=== PATIENT | female | born 1950 | race Two or more races ===

== ENCOUNTER 2021-01-11 14:51 | Inpatient (IN) | payer MEDICARE, MEDICAID ==
[~2021-01-11] VITALS: Ht 180.3 cm; Wt 84.9 kg
[2021-01-11 16:21] LABS: Basophils # (auto) 0 10 ^3/uL (0-0.2); Basophils % (auto) 0.5 % (0.0-2.0); Eosinophils # (auto) 0.1 10 ^3/uL (0-0.8); Eosinophils % (auto) 1.4 % (0.0-7.0); Hematocrit 39.5 % (36.0-46.0); Hemoglobin 12.6 g/dL (12.2-16.2); Lymphocytes # (auto) 1.1 10 ^3/uL (0.4-5.4); Lymphocytes % (auto) 12.7 % (10.0-50.0); Mean Corpuscular Hgb Conc. 31.9 g/dL (32.0-36.0); Mean Corpuscular Volume 81.6 fL (80.0-100.0); Monocytes # (auto) 0.9 10 ^3/uL (0-1.3); Monocytes % (auto) 10.7 % (0.0-12.0); Neutrophils # (auto) 6.5 10 ^3/uL (1.6-8.6); Neutrophils % (auto) 74.7 % (37.0-80.0); Red Blood Cells 4.85 10^6/uL (4.0-5.20); Red Cell Distribution Width 16.4 % (11.8-14.3); White Blood Cell 8.7 10^3/uL (4.4-10.8)
[2021-01-11 16:39] LABS: Albumin 2.9 g/dL (3.4-5.0); Calcium 8.9 mg/dL (8.5-10.1)
[2021-01-11 16:43] LABS: BUN/Creatinine Ratio 10.4; Bilirubin, Total 0.6 mg/dL (0.2-1.0); Total Protein 7.7 g/dL (6.4-8.2)
[2021-01-11 16:44] LABS: Urine Bacteria FEW /hpf (None Seen); Urine Blood 2+ /uL (Negative); Urine Hyaline Cast MANY /lpf (0 - 2); Urine Mucus FEW (None Seen); Urine Specific Gravity 1.019 (1.001-1.035); Urine WBC 1215 /hpf (0 - 5); Urine WBC Clumps PRESENT /hpf (None Seen)
[2021-01-11] MEDS ORDERED: HYDROcodone-ACET 5/325MG TAB PO ONE ×2 (17:00→21:15)
[2021-01-11] MEDS ORDERED: CLINDAMYCIN 600MG IV 50 ML IV ONE (18:45)
[2021-01-11] MEDS ORDERED: ACETAMINOPHEN 325 MG TAB PO PRN (21:15)
[2021-01-11] MEDS ORDERED: cefTRIAXone 1GM/50ML D5W 50 ML IV ONE (21:15)
[2021-01-11] MEDS ORDERED: TEMAZEPAM 15 MG CAP PO PRN (21:15)
[2021-01-12] MEDS: HYDROcodone-ACET 5/325MG TAB PO PRN ×2 (03:25→09:26)
[2021-01-12] MEDS: CLINDAMYCIN 600MG IV 50 ML IV SCH ×3 (06:30→22:26)
[2021-01-12 08:05] LABS: Calcium 7.6 mg/dL (8.5-10.1); Potassium 3.8 mmol/L (3.5-5.1)
[2021-01-12 08:08] LABS: BUN/Creatinine Ratio 16.4
[2021-01-12 08:22] LABS: Basophils # (auto) 0.1 10 ^3/uL (0-0.2); Basophils % (auto) 0.9 % (0.0-2.0); Eosinophils # (auto) 0.2 10 ^3/uL (0-0.8); Eosinophils % (auto) 2.5 % (0.0-7.0); Hematocrit 34.4 % (36.0-46.0); Hemoglobin 10.9 g/dL (12.2-16.2); Lymphocytes # (auto) 1.4 10 ^3/uL (0.4-5.4); Lymphocytes % (auto) 20.9 % (10.0-50.0); Mean Corpuscular Hemoglobin 26.1 pg (28.0-32.0); Mean Corpuscular Hgb Conc. 31.8 g/dL (32.0-36.0); Mean Corpuscular Volume 82.1 fL (80.0-100.0); Monocytes % (auto) 15.3 % (0.0-12.0); Neutrophils % (auto) 60.4 % (37.0-80.0); Nucleated Red Blood Cells % 0.2 %; Red Blood Cells 4.19 10^6/uL (4.0-5.20); Red Cell Distribution Width 16.2 % (11.8-14.3); White Blood Cell 6.6 10^3/uL (4.4-10.8)
[2021-01-12 09:00] VITALS: BP 108/56
[2021-01-12] MEDS: cefTRIAXone 1GM/50ML D5W 50 ML IV SCH (09:25)
[2021-01-12] MEDS ORDERED: PANTOPRAZOLE 40 MG TAB PO SCH (10:00)
[2021-01-12 13:00] VITALS: BP 105/71
[2021-01-12] MEDS ORDERED: OMNIPAQUE ORAL SOLN 500ml 12mg/ml PO ONE (14:43)
[2021-01-12] MEDS: MORPHINE SULFATE INJECTION 2 MG/ML SYRG IV PRN ×2 (15:38→23:11)
[2021-01-12 17:00] VITALS: BP 145/70
[2021-01-12 17:46] LABS: INR 0.99 (0.9-1.15); Partial Thromboplastin Time 33.9 sec (23.6-33.0)
[2021-01-12] MEDS ORDERED: KETOROLAC TROMETH 30 MG/ML 1ML VIAL IV PRN (21:15)
[2021-01-12 22:00] VITALS: BP 118/69
[2021-01-12] MEDS: NYSTATIN TOPICAL POWDER 15GM TOP SCH (22:26)
[2021-01-13 05:00] VITALS: BP 111/66
[2021-01-13] MEDS: CLINDAMYCIN 600MG IV 50 ML IV SCH (06:37)
[2021-01-13 09:00] VITALS: BP 114/65
[2021-01-13] MEDS: NYSTATIN TOPICAL POWDER 15GM TOP SCH ×2 (10:09→20:50)
[2021-01-13] MEDS: ENOXAPARIN SOD 40 MG/0.4 ML SYRINGE SC SCH (10:09)
[2021-01-13] MEDS ORDERED: HYDROcodone-ACET 5/325MG TAB PO PRN (10:15)
[2021-01-13] MEDS: HYDROmorphone HCL 2 MG TAB PO PRN ×2 (12:05→18:07)
[2021-01-13 13:00] VITALS: BP 124/64
[2021-01-13] MEDS ORDERED: metroNIDAZOLE 500MG/100ML 100 ML IV SCH (14:00)
[2021-01-13] MEDS ORDERED: LIDOCAINE 1% (LOCAL ANESTH.) PF 5ml SDV ID ONE (14:30)
[2021-01-13] MEDS: cefTRIAXone 1GM/50ML D5W 50 ML IV SCH (16:05)
[2021-01-13] MEDS: MORPHINE SULFATE INJECTION 2 MG/ML SYRG IV PRN ×2 (16:06→20:51)
[2021-01-13] MEDS: FLUCONAZOLE 200MG/100ML 100 ML IV SCH ×2 (16:31→17:33)
[2021-01-13 17:00] VITALS: BP 131/89
[2021-01-13] MEDS: SODIUM CHLOR 0.9% PF (SALINE LOCK) 10ML VIAL/SYR IV SCH (20:50)
[2021-01-13 22:00] VITALS: BP 112/67
[2021-01-14] MEDS: HYDROmorphone HCL 2 MG TAB PO PRN ×3 (00:08→20:43)
[2021-01-14] MEDS: MORPHINE SULFATE INJECTION 2 MG/ML SYRG IV PRN ×4 (01:10→22:40)
[2021-01-14 05:00] VITALS: BP 138/64
[2021-01-14 08:00] VITALS: BP 115/55
[2021-01-14] MEDS: cefTRIAXone 1GM/50ML D5W 50 ML IV SCH (09:30)
[2021-01-14] MEDS: SODIUM CHLOR 0.9% PF (SALINE LOCK) 10ML VIAL/SYR IV SCH ×2 (10:00→17:50)
[2021-01-14] MEDS: FLUCONAZOLE 200MG/100ML 100 ML IV SCH (11:00)
[2021-01-14] MEDS: NYSTATIN TOPICAL POWDER 15GM TOP SCH ×2 (13:20→22:00)
[2021-01-14] MEDS: ENOXAPARIN SOD 40 MG/0.4 ML SYRINGE SC SCH (13:20)
[2021-01-14 14:11] VITALS: BP 110/70
[2021-01-14 17:11] VITALS: BP 114/51
[2021-01-14 22:00] VITALS: BP 137/71
[2021-01-15] MEDS: MORPHINE SULFATE INJECTION 2 MG/ML SYRG IV PRN ×2 (04:50→11:30)
[2021-01-15 05:00] VITALS: BP 131/80
[2021-01-15] MEDS: HYDROmorphone HCL 2 MG TAB PO PRN ×2 (06:09→14:02)
[2021-01-15] MEDS: NYSTATIN TOPICAL POWDER 15GM TOP SCH ×2 (08:30→22:00)
[2021-01-15] MEDS: SODIUM CHLOR 0.9% PF (SALINE LOCK) 10ML VIAL/SYR IV SCH ×2 (08:30→22:00)
[2021-01-15] MEDS: levoFLOXacin 750MG 150 ML IV SCH (08:30)
[2021-01-15] MEDS: ENOXAPARIN SOD 40 MG/0.4 ML SYRINGE SC SCH (08:35)
[2021-01-15 09:14] VITALS: BP 143/81
[2021-01-15] MEDS: FLUCONAZOLE 200MG/100ML 100 ML IV SCH (10:00)
[2021-01-15] MEDS ORDERED: HYDROmorphone HCL 2 MG/ML VL IV ONE (12:45)
[2021-01-15 13:05] VITALS: BP 142/72
[2021-01-15 17:05] VITALS: BP 141/73
[2021-01-15] MEDS: HYDROmorphone HCL 2 MG/ML VL IV PRN (20:47)
[2021-01-15 22:00] VITALS: BP 106/61
[2021-01-16] MEDS: HYDROmorphone HCL 2 MG/ML VL IV PRN ×5 (01:10→20:15)
[2021-01-16 05:00] VITALS: BP 123/88
[2021-01-16 08:59] VITALS: BP 122/77
[2021-01-16] MEDS: ENOXAPARIN SOD 40 MG/0.4 ML SYRINGE SC SCH (10:00)
[2021-01-16] MEDS: FLUCONAZOLE 200MG/100ML 100 ML IV SCH (10:01)
[2021-01-16] MEDS: levoFLOXacin 750MG 150 ML IV SCH (10:02)
[2021-01-16] MEDS: NYSTATIN TOPICAL POWDER 15GM TOP SCH ×2 (10:02→22:00)
[2021-01-16] MEDS: SODIUM CHLOR 0.9% PF (SALINE LOCK) 10ML VIAL/SYR IV SCH ×2 (10:02→22:00)
[2021-01-16] MEDS ORDERED: LIDOCAINE HCL 2% TOP JELLY 5ML TOP ONE (11:15)
[2021-01-16] MEDS ORDERED: LIDOCAINE 2% JELLY 11ml (GLYDO) UR ONE (12:00)
[2021-01-16 12:30] VITALS: BP 133/78
[2021-01-16] MEDS ORDERED: HYDROmorphone HCL 2 MG/ML VL IV ONE (14:45)
[2021-01-16 16:59] VITALS: BP 118/79
[2021-01-16 22:00] VITALS: BP 113/74
[2021-01-17] MEDS: HYDROmorphone HCL 2 MG/ML VL IV PRN ×6 (01:11→22:40)
[2021-01-17 05:00] VITALS: BP 146/75
[2021-01-17] MEDS: levoFLOXacin 750MG 150 ML IV SCH (08:52)
[2021-01-17] MEDS: FLUCONAZOLE 200MG/100ML 100 ML IV SCH (08:52)
[2021-01-17] MEDS: ENOXAPARIN SOD 40 MG/0.4 ML SYRINGE SC SCH (08:52)
[2021-01-17 08:58] VITALS: BP 134/83
[2021-01-17] MEDS: NYSTATIN TOPICAL POWDER 15GM TOP SCH ×2 (09:02→22:34)
[2021-01-17] MEDS: SODIUM CHLOR 0.9% PF (SALINE LOCK) 10ML VIAL/SYR IV SCH ×2 (09:02→22:33)
[2021-01-17] MEDS: CEPHALEXIN 250 MG CAP PO SCH (16:33)
[2021-01-17 16:57] VITALS: BP 113/77
[2021-01-17] MEDS: HYDROcodone-ACET 10/325MG TAB PO PRN (18:23)
[2021-01-17 22:00] VITALS: BP 102/65
[2021-01-18] MEDS: CEPHALEXIN 250 MG CAP PO SCH ×5 (00:37→23:32)
[2021-01-18] MEDS: HYDROcodone-ACET 10/325MG TAB PO PRN ×2 (00:52→08:19)
[2021-01-18] MEDS: HYDROmorphone HCL 2 MG/ML VL IV PRN ×3 (04:15→23:33)
[2021-01-18 05:00] VITALS: BP 121/78
[2021-01-18] MEDS: SODIUM CHLOR 0.9% PF (SALINE LOCK) 10ML VIAL/SYR IV SCH ×2 (08:18→23:32)
[2021-01-18] MEDS: FLUCONAZOLE 200MG/100ML 100 ML IV SCH (08:18)
[2021-01-18] MEDS: ENOXAPARIN SOD 40 MG/0.4 ML SYRINGE SC SCH (08:19)
[2021-01-18 09:00] VITALS: BP 112/66
[2021-01-18] MEDS: NYSTATIN TOPICAL POWDER 15GM TOP SCH ×2 (10:08→23:32)
[2021-01-18 12:56] VITALS: BP 103/61
[2021-01-18 22:00] VITALS: BP 122/76
[2021-01-19] MEDS: HYDROcodone-ACET 10/325MG TAB PO PRN ×3 (01:55→19:55)
[2021-01-19 05:00] VITALS: BP 141/83
[2021-01-19] MEDS: CEPHALEXIN 250 MG CAP PO SCH ×4 (06:01→23:54)
[2021-01-19] MEDS: HYDROmorphone HCL 2 MG/ML VL IV PRN ×4 (06:03→22:52)
[2021-01-19 09:11] VITALS: BP 130/71
[2021-01-19] MEDS: NYSTATIN TOPICAL POWDER 15GM TOP SCH ×2 (10:00→22:26)
[2021-01-19] MEDS: FLUCONAZOLE 200MG/100ML 100 ML IV SCH (10:32)
[2021-01-19] MEDS: SODIUM CHLOR 0.9% PF (SALINE LOCK) 10ML VIAL/SYR IV SCH ×2 (10:32→22:26)
[2021-01-19] MEDS: ENOXAPARIN SOD 40 MG/0.4 ML SYRINGE SC SCH (10:32)
[2021-01-19 12:42] VITALS: BP 134/73
[2021-01-19 16:09] VITALS: BP 143/80
[2021-01-19] MEDS ORDERED: FUROSEMIDE 40 MG/4 ML VIAL IV ONE (19:00)
[2021-01-19 22:00] VITALS: BP 118/64
[2021-01-20] MEDS: HYDROmorphone HCL 2 MG/ML VL IV PRN ×4 (04:06→22:16)
[2021-01-20 05:00] VITALS: BP 100/56
[2021-01-20] MEDS: CEPHALEXIN 250 MG CAP PO SCH (06:43)
[2021-01-20 07:47] LABS: Basophils # (auto) 0 10 ^3/uL (0-0.2); Basophils % (auto) 0.3 % (0.0-2.0); Eosinophils # (auto) 0.1 10 ^3/uL (0-0.8); Eosinophils % (auto) 0.7 % (0.0-7.0); Hematocrit 34.2 % (36.0-46.0); Hemoglobin 11.4 g/dL (12.2-16.2); Lymphocytes # (auto) 0.9 10 ^3/uL (0.4-5.4); Lymphocytes % (auto) 6.3 % (10.0-50.0); Mean Corpuscular Hgb Conc. 33.4 g/dL (32.0-36.0); Mean Corpuscular Volume 80.8 fL (80.0-100.0); Monocytes # (auto) 2.1 10 ^3/uL (0-1.3); Monocytes % (auto) 14.3 % (0.0-12.0); Neutrophils # (auto) 11.4 10 ^3/uL (1.6-8.6); Neutrophils % (auto) 78.4 % (37.0-80.0); Red Blood Cells 4.23 10^6/uL (4.0-5.20); Red Cell Distribution Width 16.1 % (11.8-14.3); White Blood Cell 14.5 10^3/uL (4.4-10.8)
[2021-01-20 07:57] LABS: BUN/Creatinine Ratio 23.4; Calcium 9.1 mg/dL (8.5-10.1); Potassium 4.4 mmol/L (3.5-5.1); Uric Acid 9.1 mg/dL (2.6-6.0)
[2021-01-20] MEDS: ENOXAPARIN SOD 40 MG/0.4 ML SYRINGE SC SCH (09:56)
[2021-01-20] MEDS: FLUCONAZOLE 200MG/100ML 100 ML IV SCH (09:56)
[2021-01-20] MEDS: SODIUM CHLOR 0.9% PF (SALINE LOCK) 10ML VIAL/SYR IV SCH ×3 (09:56→22:15)
[2021-01-20] MEDS: ONDANSETRON HCL 4 MG/2 ML VIAL IV PRN ×2 (09:58→14:15)
[2021-01-20] MEDS: CEFTRIAXONE SODIUM 2 GM in D5W 5% 50 ML IV SCH (10:00)
[2021-01-20] MEDS ORDERED: NITROGLYCERIN 0.4 MG SL TAB SL PRN (10:15)
[2021-01-20] MEDS ORDERED: MORPHINE SULFATE INJECTION 2 MG/ML SYRG IV PRN (10:15)
[2021-01-20] MEDS: predniSONE 20 MG TAB PO SCH (10:34)
[2021-01-20] MEDS: PANTOPRAZOLE 40 MG TAB PO SCH (10:35)
[2021-01-20] MEDS: NYSTATIN TOPICAL POWDER 15GM TOP SCH ×2 (10:35→22:18)
[2021-01-20] MEDS: ALLOPURINOL 100 MG TAB PO SCH (10:35)
[2021-01-20] MEDS: DOXYCYCLINE 100MG/250ML 250 ML IV SCH (13:02)
[2021-01-20] MEDS: HYDROcodone-ACET 10/325MG TAB PO PRN (17:09)
[2021-01-20 20:15] LABS: INR 1.03 (0.9-1.15)
[2021-01-20 22:00] VITALS: BP 101/64
[2021-01-21] MEDS: DOXYCYCLINE 100MG/250ML 250 ML IV SCH (01:22)
[2021-01-21] MEDS: HYDROcodone-ACET 10/325MG TAB PO PRN ×3 (01:23→20:00)
[2021-01-21 05:00] VITALS: BP 102/62
[2021-01-21] MEDS: SODIUM CHLOR 0.9% PF (SALINE LOCK) 10ML VIAL/SYR IV SCH ×3 (06:28→22:00)
[2021-01-21 07:53] LABS: Uric Acid 7.8 mg/dL (2.6-6.0)
[2021-01-21 09:00] VITALS: BP 107/76
[2021-01-21 09:17] LABS: CRP High Sensitivity > 19.0 mg/dL (< 0.3)
[2021-01-21] MEDS: FLUCONAZOLE 100 MG TAB PO SCH (10:00)
[2021-01-21] MEDS: NYSTATIN TOPICAL POWDER 15GM TOP SCH ×2 (10:00→22:00)
[2021-01-21] MEDS: ALLOPURINOL 100 MG TAB PO SCH (10:00)
[2021-01-21] MEDS: PANTOPRAZOLE 40 MG TAB PO SCH (10:00)
[2021-01-21] MEDS: CEFTRIAXONE SODIUM 2 GM in D5W 5% 50 ML IV SCH (10:00)
[2021-01-21] MEDS: ENOXAPARIN SOD 40 MG/0.4 ML SYRINGE SC SCH (10:00)
[2021-01-21] MEDS: predniSONE 20 MG TAB PO SCH (10:00)
[2021-01-21] MEDS: HYDROmorphone HCL 2 MG/ML VL IV PRN ×2 (10:15→18:15)
[2021-01-21 13:00] VITALS: BP 122/76
[2021-01-21 17:00] VITALS: BP 149/83
[2021-01-21] MEDS: DOXYCYCLINE 100 MG TAB/CAP PO SCH (22:00)
[2021-01-21 22:04] VITALS: BP 138/85
[2021-01-22] MEDS: HYDROmorphone HCL 2 MG/ML VL IV PRN ×2 (03:30→11:37)
[2021-01-22 05:30] VITALS: BP 115/73
[2021-01-22] MEDS: SODIUM CHLOR 0.9% PF (SALINE LOCK) 10ML VIAL/SYR IV SCH ×3 (05:55→21:55)
[2021-01-22 09:00] VITALS: BP 126/77
[2021-01-22] MEDS: ENOXAPARIN SOD 40 MG/0.4 ML SYRINGE SC SCH (10:17)
[2021-01-22] MEDS: ALLOPURINOL 100 MG TAB PO SCH (10:17)
[2021-01-22] MEDS: FLUCONAZOLE 100 MG TAB PO SCH (10:18)
[2021-01-22] MEDS: DOXYCYCLINE 100 MG TAB/CAP PO SCH ×2 (10:18→21:55)
[2021-01-22] MEDS: PANTOPRAZOLE 40 MG TAB PO SCH (10:18)
[2021-01-22] MEDS: NYSTATIN TOPICAL POWDER 15GM TOP SCH ×2 (10:18→21:56)
[2021-01-22] MEDS: predniSONE 20 MG TAB PO SCH (10:18)
[2021-01-22] MEDS: CEFTRIAXONE SODIUM 2 GM in D5W 5% 50 ML IV SCH (10:20)
[2021-01-22 13:00] VITALS: BP 131/92
[2021-01-22 16:32] VITALS: BP 140/86
[2021-01-22 22:00] VITALS: BP 123/73
[2021-01-23] MEDS: HYDROmorphone HCL 2 MG/ML VL IV PRN ×3 (00:51→14:58)
[2021-01-23 05:00] VITALS: BP 136/79
[2021-01-23] MEDS: SODIUM CHLOR 0.9% PF (SALINE LOCK) 10ML VIAL/SYR IV SCH ×3 (06:08→22:36)
[2021-01-23] MEDS: FLUCONAZOLE 100 MG TAB PO SCH (09:49)
[2021-01-23] MEDS: PANTOPRAZOLE 40 MG TAB PO SCH ×2 (09:49→10:00)
[2021-01-23] MEDS: DOXYCYCLINE 100 MG TAB/CAP PO SCH ×2 (09:49→22:34)
[2021-01-23] MEDS: predniSONE 20 MG TAB PO SCH (09:49)
[2021-01-23] MEDS: CEFTRIAXONE SODIUM 2 GM in D5W 5% 50 ML IV SCH (09:50)
[2021-01-23] MEDS: ALLOPURINOL 100 MG TAB PO SCH ×2 (09:50→10:00)
[2021-01-23] MEDS: ENOXAPARIN SOD 40 MG/0.4 ML SYRINGE SC SCH (09:50)
[2021-01-23] MEDS: NYSTATIN TOPICAL POWDER 15GM TOP SCH ×2 (09:51→22:36)
[2021-01-23 13:25] VITALS: BP 128/79
[2021-01-23 17:16] VITALS: BP 121/70
[2021-01-23 21:56] VITALS: BP 125/75
[2021-01-24 05:19] VITALS: BP 125/69
[2021-01-24] MEDS: SODIUM CHLOR 0.9% PF (SALINE LOCK) 10ML VIAL/SYR IV SCH (06:57)
[2021-01-24 09:00] VITALS: BP 136/86
[2021-01-24] MEDS: ALLOPURINOL 100 MG TAB PO SCH (10:00)
[2021-01-24] MEDS: NYSTATIN TOPICAL POWDER 15GM TOP SCH (10:00)
[2021-01-24] MEDS: DOXYCYCLINE 100 MG TAB/CAP PO SCH (10:30)
[2021-01-24] MEDS: FLUCONAZOLE 100 MG TAB PO SCH (10:30)
[2021-01-24] MEDS: predniSONE 20 MG TAB PO SCH (10:30)
[2021-01-24] MEDS: ENOXAPARIN SOD 40 MG/0.4 ML SYRINGE SC SCH (10:30)
[2021-01-24] MEDS: PANTOPRAZOLE 40 MG TAB PO SCH (10:30)
[2021-01-24] MEDS: CEFTRIAXONE SODIUM 2 GM in D5W 5% 50 ML IV SCH (10:30)
[2021-01-24] MEDS: HYDROmorphone HCL 2 MG/ML VL IV PRN (10:56)
[2021-01-24 11:26] VITALS: BP 117/88
== END 2021-01-24 17:00 | DRG 548 ==
LOC: ER 14:51 → OVERFLOW 21:12 → WEST WING 01-12 08:28 → TELE-WESTW 01-20 10:29 → WEST WING 01-20 21:17 → TELE-WESTW 01-21 03:14 → WEST WING 01-21 09:20
PROVIDERS: ADMIT Nurse Practitioner; ATTEND Internal Medicine
PROC: 02HV33Z Insertion of Infusion Device into Superior Vena Cava, Percutaneous Approach (ICD-10-PCS; principal; 2021-01-13)
PROC: B54DZZZ Ultrasonography of Bilateral Lower Extremity Veins (ICD-10-PCS; 2021-01-21)
PROC: 0S9C3ZX Drainage of Right Knee Joint, Percutaneous Approach, Diagnostic (ICD-10-PCS; 2021-01-21)
PROC: B44HZZZ Ultrasonography of Bilateral Lower Extremity Arteries (ICD-10-PCS; 2021-01-21)
PROC: 0S9D3ZX Drainage of Left Knee Joint, Percutaneous Approach, Diagnostic (ICD-10-PCS; 2021-01-21)
DX: M00.9 Pyogenic arthritis, unspecified (principal); N17.0 Acute kidney failure with tubular necrosis; L03.315 Cellulitis of perineum; L03.818 Cellulitis of other sites; K50.90 Crohn's disease, unspecified, without complications; E44.0 Moderate protein-calorie malnutrition; N39.0 Urinary tract infection, site not specified; M25.461 Effusion, right knee; M65.861 Other synovitis and tenosynovitis, right lower leg; D17.79 Benign lipomatous neoplasm of other sites; E66.01 Morbid (severe) obesity due to excess calories; N18.9 Chronic kidney disease, unspecified; M79.3 Panniculitis, unspecified; R20.8 Other disturbances of skin sensation; M48.061 Spinal stenosis, lumbar region without neurogenic claudication; M17.0 Bilateral primary osteoarthritis of knee; M10.9 Gout, unspecified; M11.20 Other chondrocalcinosis, unspecified site; I12.9 Hypertensive chronic kidney disease with stage 1 through stage 4 chronic kidney disease, or unspecified chronic kidney disease; M25.462 Effusion, left knee; M65.862 Other synovitis and tenosynovitis, left lower leg; Z20.822 Contact with and (suspected) exposure to COVID-19; Z90.5 Acquired absence of kidney; Z93.3 Colostomy status; Z90.49 Acquired absence of other specified parts of digestive tract; Z82.49 Family history of ischemic heart disease and other diseases of the circulatory system; Z83.3 Family history of diabetes mellitus; Z68.26 Body mass index [BMI] 26.0-26.9, adult; Z53.20 Procedure and treatment not carried out because of patient's decision for unspecified reasons; Z87.442 Personal history of urinary calculi
CPT/HCPCS: 36415; 36569; 71045; 72131; 73562; 73610; 73700; 74176; 76942; 80048; 80053; 81001; 84550; 85025; 85610; 85652; 85730; 86141; 87040; 87077; 87086; 87186; 87205; 87426; 89051; 89060; 93925; 93970; 96365; 96366; 96367; 97110; 97163; 97530; G0378; J0696; J1450; J1956; J2405; J3490; J7060

== ENCOUNTER 2021-02-21 07:49 | Emergency (ER) | payer MEDICARE, MEDICAID ==
[~2021-02-21] VITALS: Ht 165.1 cm; Wt 95.3 kg
[2021-02-21 12:03] LABS: Red Cell Distribution Width 16.1 % (11.8-14.3)
[2021-02-21 12:05] LABS: Hematocrit 39.3 % (36.0-46.0); Hemoglobin 12.7 g/dL (12.2-16.2); Mean Corpuscular Hemoglobin 25.5 pg (28.0-32.0); Mean Corpuscular Hgb Conc. 32.3 g/dL (32.0-36.0); Mean Corpuscular Volume 78.8 fL (80.0-100.0); Red Blood Cells 4.99 10^6/uL (4.0-5.20)
[2021-02-21 12:12] LABS: Albumin 2.7 g/dL (3.4-5.0); Calcium 9.8 mg/dL (8.5-10.1); Potassium 3.9 mmol/L (3.5-5.1)
[2021-02-21 12:16] LABS: BUN/Creatinine Ratio 10.1; Bilirubin, Total 0.7 mg/dL (0.2-1.0); Total Protein 8.1 g/dL (6.4-8.2)
[2021-02-21 12:27] LABS: Basophils % (manual) 0 (0.0-2.0); Blast Cells 0; Metamyelocytes % 0; Myelocytes % 0; Promyelocytes % 0; Reactive Lymphocytes 0
[2021-02-21] MEDS ORDERED: cefTRIAXone 1GM/50ML D5W 50 ML IV ONE (12:45)
[2021-02-21] MEDS ORDERED: CLINDAMYCIN 300MG IV 50 ML IV ONE (12:45)
[2021-02-21 12:48] LABS: Band Neutrophils % (manual) 2; Eosinophils % (manual) 1 (0-7); Lymphocytes % (manual) 14 (10.0-50.0); Monocytes % (manual) 14 (0-12)
[2021-02-22] MEDS ORDERED: HYDROcodone-ACET 10/325MG TAB PO ONE (03:00)
[2021-02-22] MEDS ORDERED: MORPHINE SULFATE INJECTION 2 MG/ML SYRG IV ONE (08:00)
[2021-02-22 11:10] VITALS: BP 104/76
== END 2021-02-22 12:19 | disposition home or self-care (01) ==
LOC: EDUNIT# 07:49 → EDBD 07:49 → ER 07:49
DX: L03.311 Cellulitis of abdominal wall (principal); Z48.00 Encounter for change or removal of nonsurgical wound dressing
CPT/HCPCS: 36415; 71045; 74176; 80053; 85007; 85027; 96365; 96367; 96375; 99285; J0696; J2270; J3490

== ENCOUNTER 2021-03-01 17:53 | Inpatient (IN) | payer MEDICARE, MEDICAID ==
[~2021-03-01] VITALS: Ht 172.7 cm; Wt 104.5 kg
[2021-03-01] MEDS ORDERED: MORPHINE SULFATE 4 MG/ML SYR/VIAL IV ONE (20:15)
[2021-03-01 21:39] LABS: Basophils # (auto) 0.1 10 ^3/uL (0-0.2); Basophils % (auto) 0.5 % (0.0-2.0); Eosinophils # (auto) 0.1 10 ^3/uL (0-0.8); Eosinophils % (auto) 0.6 % (0.0-7.0); Hematocrit 36.9 % (36.0-46.0); Hemoglobin 11.5 g/dL (12.2-16.2); Lymphocytes # (auto) 1.6 10 ^3/uL (0.4-5.4); Lymphocytes % (auto) 13.6 % (10.0-50.0); Mean Corpuscular Hemoglobin 24.8 pg (28.0-32.0); Mean Corpuscular Hgb Conc. 31.3 g/dL (32.0-36.0); Mean Corpuscular Volume 79.4 fL (80.0-100.0); Monocytes # (auto) 1.4 10 ^3/uL (0-1.3); Monocytes % (auto) 11.7 % (0.0-12.0); Neutrophils # (auto) 8.8 10 ^3/uL (1.6-8.6); Neutrophils % (auto) 73.6 % (37.0-80.0); Red Blood Cells 4.65 10^6/uL (4.0-5.20); Red Cell Distribution Width 16.3 % (11.8-14.3)
[2021-03-01 21:53] LABS: Albumin 2.4 g/dL (3.4-5.0); Calcium 9.3 mg/dL (8.5-10.1)
[2021-03-01 21:56] LABS: Bilirubin, Total 0.5 mg/dL (0.2-1.0); Total Protein 7.6 g/dL (6.4-8.2)
[2021-03-01] MEDS ORDERED: SODIUM CHLORIDE 0.9% 500 ML IV ONE (22:00)
[2021-03-01] MEDS ORDERED: PIPERACILLIN-TAZOB 3.375GM 100 ML IV ONE (23:00)
[2021-03-01] MEDS ORDERED: VANCOMYCIN 1GM/250ML 250 ML IV ONE (23:00)
[2021-03-01 23:38] LABS: BUN/Creatinine Ratio 11.7
[2021-03-02] MEDS ORDERED: ONDANSETRON HCL 4 MG/2 ML VIAL IV PRN (03:15)
[2021-03-02] MEDS ORDERED: TEMAZEPAM 15 MG CAP PO PRN (03:15)
[2021-03-02] MEDS ORDERED: ACETAMINOPHEN 325 MG TAB PO PRN (03:15)
[2021-03-02] MEDS: HYDROcodone-ACET 5/325MG TAB PO PRN ×4 (03:35→22:22)
[2021-03-02] MEDS: CLINDAMYCIN 600MG IV 50 ML IV SCH ×3 (06:19→22:20)
[2021-03-02] MEDS: MORPHINE SULFATE INJECTION 2 MG/ML SYRG IV PRN ×3 (08:32→23:02)
[2021-03-02] MEDS: cefTRIAXone 1GM/50ML D5W 50 ML IV SCH (09:45)
[2021-03-02] MEDS: ENOXAPARIN SOD 40 MG/0.4 ML SYRINGE SC SCH (09:46)
[2021-03-02 22:45] VITALS: BP 111/58
[2021-03-03 05:00] VITALS: BP 111/67
[2021-03-03 05:13] LABS: Eosinophils # (auto) 0.1 10 ^3/uL (0-0.8); Neutrophils # (auto) 7.1 10 ^3/uL (1.6-8.6)
[2021-03-03 05:24] LABS: Basophils # (auto) 0.1 10 ^3/uL (0-0.2); Basophils % (auto) 0.9 % (0.0-2.0); Eosinophils % (auto) 0.9 % (0.0-7.0); Hematocrit 33.1 % (36.0-46.0); Hemoglobin 10.5 g/dL (12.2-16.2); Lymphocytes # (auto) 1.2 10 ^3/uL (0.4-5.4); Lymphocytes % (auto) 12.1 % (10.0-50.0); Mean Corpuscular Hemoglobin 25.2 pg (28.0-32.0); Mean Corpuscular Hgb Conc. 31.8 g/dL (32.0-36.0); Mean Corpuscular Volume 79.3 fL (80.0-100.0); Monocytes # (auto) 1.2 10 ^3/uL (0-1.3); Monocytes % (auto) 12.7 % (0.0-12.0); Neutrophils % (auto) 73.4 % (37.0-80.0); Nucleated Red Blood Cells % 0.1 %; Red Blood Cells 4.17 10^6/uL (4.0-5.20); Red Cell Distribution Width 16.3 % (11.8-14.3); White Blood Cell 9.7 10^3/uL (4.4-10.8)
[2021-03-03] MEDS: CLINDAMYCIN 600MG IV 50 ML IV SCH ×3 (05:26→22:45)
[2021-03-03 05:28] LABS: BUN/Creatinine Ratio 9.6; Calcium 9.6 mg/dL (8.5-10.1)
[2021-03-03 08:48] VITALS: BP 102/61
[2021-03-03] MEDS: cefTRIAXone 1GM/50ML D5W 50 ML IV SCH (10:23)
[2021-03-03] MEDS: ENOXAPARIN SOD 40 MG/0.4 ML SYRINGE SC SCH (10:24)
[2021-03-03 13:00] VITALS: BP 91/60
[2021-03-03 17:00] VITALS: BP 118/69
[2021-03-03] MEDS ORDERED: LIDOCAINE HCL 2% TOP JELLY 5ML TOP PRN (18:15)
[2021-03-03 22:00] VITALS: BP_SYST 85; BP_SYST 96; BP_DIAS 60; BP_DIAS 62
[2021-03-03] MEDS: MORPHINE SULFATE INJECTION 2 MG/ML SYRG IV PRN (22:52)
[2021-03-04 05:00] VITALS: BP 102/66
[2021-03-04] MEDS: CLINDAMYCIN 600MG IV 50 ML IV SCH ×3 (06:17→23:34)
[2021-03-04] MEDS: HYDROcodone-ACET 5/325MG TAB PO PRN (06:49)
[2021-03-04 08:34] VITALS: BP 95/68
[2021-03-04] MEDS: cefTRIAXone 1GM/50ML D5W 50 ML IV SCH (11:29)
[2021-03-04] MEDS: ENOXAPARIN SOD 40 MG/0.4 ML SYRINGE SC SCH (11:29)
[2021-03-04 13:47] VITALS: BP 97/61
[2021-03-04 17:42] VITALS: BP 107/72
[2021-03-04 22:00] VITALS: BP 112/65
[2021-03-04] MEDS: MORPHINE SULFATE INJECTION 2 MG/ML SYRG IV PRN (23:40)
[2021-03-05 05:00] VITALS: BP 107/62
[2021-03-05] MEDS: CLINDAMYCIN 600MG IV 50 ML IV SCH ×3 (05:45→22:53)
[2021-03-05 09:00] VITALS: BP 104/71
[2021-03-05] MEDS: cefTRIAXone 1GM/50ML D5W 50 ML IV SCH (09:37)
[2021-03-05] MEDS: ENOXAPARIN SOD 40 MG/0.4 ML SYRINGE SC SCH (09:37)
[2021-03-05] MEDS: HYDROcodone-ACET 5/325MG TAB PO PRN (09:38)
[2021-03-05 13:00] VITALS: BP 96/58
[2021-03-05] MEDS: MORPHINE SULFATE INJECTION 2 MG/ML SYRG IV PRN ×2 (14:00→22:56)
[2021-03-05 17:00] VITALS: BP 102/54
[2021-03-05 22:00] VITALS: BP 117/71
[2021-03-05 22:43] VITALS: BP 117/71
[2021-03-06 05:00] VITALS: BP 121/67
[2021-03-06] MEDS: CLINDAMYCIN 600MG IV 50 ML IV SCH ×3 (05:58→22:04)
[2021-03-06 09:00] VITALS: BP 130/61
[2021-03-06] MEDS: cefTRIAXone 1GM/50ML D5W 50 ML IV SCH (09:02)
[2021-03-06] MEDS: ENOXAPARIN SOD 40 MG/0.4 ML SYRINGE SC SCH (09:04)
[2021-03-06] MEDS: MORPHINE SULFATE INJECTION 2 MG/ML SYRG IV PRN ×2 (10:16→22:05)
[2021-03-06 13:00] VITALS: BP 101/65
[2021-03-06 16:42] VITALS: BP 111/61
[2021-03-06 22:00] VITALS: BP 114/70
[2021-03-07 04:55] VITALS: BP 107/70
[2021-03-07] MEDS: CLINDAMYCIN 600MG IV 50 ML IV SCH ×2 (06:22→13:53)
[2021-03-07 09:00] VITALS: BP 114/66
[2021-03-07] MEDS: ENOXAPARIN SOD 40 MG/0.4 ML SYRINGE SC SCH (09:44)
[2021-03-07] MEDS: cefTRIAXone 1GM/50ML D5W 50 ML IV SCH (09:45)
[2021-03-07] MEDS: MORPHINE SULFATE INJECTION 2 MG/ML SYRG IV PRN (12:05)
[2021-03-07 13:00] VITALS: BP 105/66
[2021-03-07 15:05] VITALS: BP 102/62
== END 2021-03-07 16:45 | DRG 602 ==
LOC: ER 17:53 → EDBD 17:53 → OVERFLOW 03-02 03:07 → CENTRAL 03-02 22:45
PROVIDERS: ADMIT Nurse Practitioner; ATTEND Internal Medicine
DX: L03.311 Cellulitis of abdominal wall (principal); E43 Unspecified severe protein-calorie malnutrition; D72.829 Elevated white blood cell count, unspecified; E66.01 Morbid (severe) obesity due to excess calories; B95.2 Enterococcus as the cause of diseases classified elsewhere; Z20.822 Contact with and (suspected) exposure to COVID-19; G89.4 Chronic pain syndrome; N18.9 Chronic kidney disease, unspecified; Z82.49 Family history of ischemic heart disease and other diseases of the circulatory system; Z83.3 Family history of diabetes mellitus; Z90.49 Acquired absence of other specified parts of digestive tract; Z93.3 Colostomy status; Z93.2 Ileostomy status; Z68.35 Body mass index [BMI] 35.0-35.9, adult
CPT/HCPCS: 36415; 74176; 80048; 80053; 83605; 83735; 84439; 84443; 85025; 87077; 87081; 87186; 87205; 87426; 93005; 96365; 96367; 96375; G0378; J0696; J2543; J3490